=== PATIENT | male | born 1960 | race Caucasian/White ===

== ENCOUNTER 2021-08-08 12:03 | Emergency (ER) | payer BC ==
[~2021-08-08 12:03] MED LIST: ASPIR 8181 MG PO; ATORVASTATIN CA20 MG PO; VITAMIN D21250 MCG PO
== END 2021-08-08 15:30 | disposition home or self-care (01) ==
LOC: ER1 12:03
DX: U07.1 COVID-19 (principal); Z23 Encounter for immunization
CPT/HCPCS: 71045; 99283; J7030; M0243